=== PATIENT | female | born 1995 | race Two or more races ===

== ENCOUNTER 2017-05-04 19:29 | Emergency (ER) | payer OTHER ==
[2017-05-04] MEDS ORDERED: SODIUM CHLORIDE 0.9% 1,000 ML IV ONE (19:37)
[2017-05-04 19:55] LABS: BASOPHILS # (AUTO) 0.1 10^3/uL (0.0-0.1); BASOPHILS % (AUTO) 1.2 %; EOSINOPHILS # (AUTO) 0.2 10^3/uL (0.0-0.7); HGB - HEMOGLOBIN 12.7 g/dL (12.0-16.0); LYMPHOCYTES # (AUTO) 2.1 10^3/uL (1.5-3.5); LYMPHOCYTES % (AUTO) 38.9 %; MEAN CORPUSCULAR HEMOGLOBIN 29.3 pg (27.0-31.0); MEAN CORPUSCULAR HGB CONC 33.5 g/dL (32.0-36.0); MEAN CORPUSCULAR VOLUME 87.2 fL (81.0-99.0); MEAN PLATELET VOLUME 7.7 fL (7.9-10.8); MONOCYTES # (AUTO) 0.4 10^3/uL (0.0-1.0); MONOCYTES % (AUTO) 7.2 %; NEUTROPHILS # (AUTO) 2.7 10^3/uL (1.5-6.6); NEUTROPHILS % (AUTO) 49.7 %; PLT - PLATELET COUNT 220 10^3/uL (130-450); RED BLOOD COUNT 4.33 10^6/uL (4.20-5.40); RED CELL DISTRIBUTION WIDTH 12.9 % (12.0-15.0); WHITE BLOOD COUNT 5.4 x10^3/uL (4.8-10.8)
[2017-05-04] MEDS ORDERED: ONDANSETRON ODT 4 MG TABLET TL STA (19:57)
[2017-05-04] MEDS ORDERED: MECLIZINE 12.5 MG TABLET PO STA (19:57)
[2017-05-04 20:04] LABS: CREATININE 0.7 mg/dL (0.4-1.0)
[2017-05-04 20:17] LABS: HCG,QUALITATIVE BLOOD NEGATIVE
--- NOTE | 2017-05-04 21:22 | ED Physician Documentation ---
History of Present Illness - Stated complaint Stated Complaint: DIZZINESS - Chief complaint Chief Complaint: Neuro - History obtained from History obtained from: Patient (pt is here for evaluation of a dizzy sensation that occured while she was standing at work today. she states that it was a sudden onset, no palpitaions, no headache, nothering like this before.) Review of Systems Constitutional: denies: Fever, Chills Eyes: reports: Decreased vision. denies: Photophobia Ears: reports: Tinnitus/ringing Nose: denies: Congestion, Sinus pressure / pain Throat: denies: Sore throat Cardiac: denies: Chest pain / pressure, Palpitations Respiratory: denies: Dyspnea, Cough GI: reports: Nausea. denies: Abdominal Pain, Vomiting, Constipation, Diarrhea : denies: Dysuria, Vaginal bleeding Skin: denies: Rash, Lesions Musculoskeletal: denies: Neck pain, Back pain, Extremity pain, Joint swelling Neurologic: reports: Other (vertigo). denies: Generalized weakness, Confused, Altered mental status, Headache PD PAST MEDICAL HISTORY - Past Medical History Past Medical History: Yes Cardiovascular: None Respiratory: None Neuro: Headache/migraine Endocrine/Autoimmune: None GI: None DRIVER EDUCATION INSTRUCTOR: None : None HEENT: None Psych: None Musculoskeletal: None Derm: None - Past Surgical History Past Surgical History: No - Present Medications Home Medications: Ambulatory Orders Medication Instructions Recorded Confirmed Amitriptyline [Elavil] 1 tab PO DAILY 05/04/17 05/04/17 Meclizine [Antivert] 12.5 mg PO Q6H PRN #10 tablet 05/04/17 Rizatriptan Benzoate [Maxalt] 1 tab PO DAILY PRN 05/04/17 05/04/17 - Allergies Allergies/Adverse Reactions: Allergies Allergy/AdvReac Type Severity Reaction Status Date / Time No Known Drug Allergies Allergy Verified 05/04/17 19:36 - Social History Does the pt smoke?: No Smoking Status: Never smoker Does the pt drink ETOH?: No Does the pt have substance abuse?: No - Immunizations Immunizations are current?: Yes PD ED PE NORMAL - Vitals Vital signs reviewed: Yes - General General: Alert and oriented X 3, No acute distress, Well developed/nourished - HEENT HEENT: Atraumatic, Ears normal, Moist mucous membranes - Cardiac Cardiac: RRR, No murmur - Respiratory Respiratory: No respiratory distress, Clear bilaterally - Abdomen Abdomen: Soft, Non tender - Back Back: No CVA TTP - Derm Derm: Normal color, No rash - Extremities Extremities: No deformity, No tenderness to palpate, No edema - Neuro Neuro: Alert and oriented X 3, counselor aide 2-12 intact, No motor deficit, No sensory deficit, Normal speech Eye Opening: Spontaneous Motor: Obeys Commands Verbal: Oriented GCS Score: 15 - Psych Psych: Normal mood, Normal affect Results - Vitals Vitals: Vital Signs - 24 hr 05/04/17 05/04/17 05/04/17 19:30 20:28 21:22 Temperature 36.7 C Heart Rate 55 L 50 L 58 L Respiratory 16 16 16 Rate Blood Pressure 108/67 120/62 107/66 O2 Saturation 100 100 100 Oxygen O2 Source Room air - EKG (time done) 1938 Rate: Rate (enter#) Rhythm: Sinus bradycardia [place]: Normal Intervals: Normal DE, QRS normal. No: Prolonged QT QRS: Normal - Labs Labs: Laboratory Tests 05/04/17 05/04/17 05/04/17 19:44 19:44 19:44 WBC 5.4 RBC 4.33 Hgb 12.7 Hct 37.8 MCV 87.2 MCH 29.3 MCHC 33.5 RDW 12.9 Plt Count 220 MPV 7.7 L Neut # 2.7 Lymph # 2.1 [place] # 0.4 Eos # 0.2 Baso # 0.1 Absolute Nucleated RBC 0.00 Nucleated RBC % 0.0 Sodium 137 Potassium 3.5 Chloride 100 L Carbon Dioxide 24 Anion Gap 13.0 BUN 13 Creatinine 0.7 Estimated GFR (MDRD) 104 Glucose 113 H Calcium 9.0 Serum HCG, Qual NEGATIVE PD MEDICAL DECISION MAKING - ED course Complexity details: reviewed results, considered differential, d/w patient ED course: pt with resolution of her symptoms after the fluids and the medication in the ER. doubt central process. will hold on head CT for now. doubt cardiac etiology. discussed with pt. discussed work restrictions. pt to follow up with her medical Departure - Departure Disposition: Home, Self Care Clinical Impression: Dizziness Condition: Good Instructions: ED Dizziness [facility] Follow-Up: primary, care provider [Other] Prescriptions: Meclizine [Antivert] 12.5 mg PO Q6H PRN #10 tablet PRN Reason: Dizziness Comments: Return to the ER for any new or worsening symptoms.
[2017-05-04 21:23] VITALS: BP 107/66
== END 2017-05-04 21:31 | disposition home or self-care (01) ==
LOC: ED 19:29
DX: R42 Dizziness and giddiness (principal); R00.1 Bradycardia, unspecified
CPT/HCPCS: 36415; 80048; 84703; 85025; 93005; 96360; 99283; 99284; A9270; Q0162

== ENCOUNTER 2018-10-13 07:25 | Outpatient (CLI) | payer OTHER ==
--- NOTE | 2018-10-14 17:00 | MRI Report ---
Reason: LOW BACK PAIN Procedure Date: 10/13/2018 Accession Number: [id number] / [id number] Procedure: MRI - Lumbar Spine W/O CPT Code: FULL RESULT: EXAM: MRI LUMBAR SPINE WITHOUT CONTRAST EXAM DATE: 10/13/2018 08:12 AM. CLINICAL HISTORY: Low back pain with bilateral lower extremity pain and numbness. COMPARISON: None. TECHNIQUE: Multiplanar, multisequence T1-weighted and fluid-sensitive sequences of the lumbar spine from T12 to S1 without contrast. Other: None. FINDINGS: Lumbar alignment is anatomic. Vertebral body height is preserved. There is no fracture. Marrow signal is normal. No pars defects. The conus is normal in contour with the tip at the level of the L2 vertebra. Axial images demonstrate the following: T12-L1: Normal intervertebral disk and facet joints. No central or foraminal stenosis. L1-L2: Normal intervertebral disk and facet joints. No central or foraminal stenosis. L2-L3: Normal intervertebral disk and facet joints. No central or foraminal stenosis. L3-L4: Normal intervertebral disk and facet joints. No central or foraminal stenosis. L4-L5: Normal intervertebral disk and facet joints. No central or foraminal stenosis. L5-S1: Normal intervertebral disk and facet joints. No central or foraminal stenosis. IMPRESSION: Normal lumbar spine MRI. Comment: The following findings are so common in adults without low back pain that while we report their presence, they must be interpreted with caution and in the context of the clinical situation. (Reference Denisevik et al, Spine 2001) Prevalence of findings in patients without low back pain: Disk degeneration (any evidence): 92% Disk desiccation/T2 signal loss: 83% Disk height loss: 56% Disk bulge: 64% Disk protrusion: 32% Annular tear/high intensity zone: 38% RADIA
== END 2018-10-13 07:26 | disposition home or self-care (01) ==
LOC: DI 07:25
PROVIDERS: ATTEND Physician Assistant
DX: M54.5 Low back pain (principal)
CPT/HCPCS: 72148